=== PATIENT | male | born 1945 | race American Indian/Alaskan Native ===

== ENCOUNTER 2018-11-07 13:01 | Inpatient (IN) | payer MEDICARE ==
[2018-11-07] MEDS ORDERED: ASPIRIN PO ONE (13:13)
[2018-11-07 13:47] LABS: Basophils % (Auto) 0.4 % (0.0-1.8); Eosinophils % (Auto) 0.7 % (0.0-4.3); Hematocrit 44.9 % (35.5-45.6); Hemoglobin 15.1 gm/dl (11.8-15.2); Lymphocytes # (Auto) 1.7 K/mm3 (1.2-5.4); Lymphocytes % (Auto) 34.9 % (13.4-35.0); Mean Corpuscular HGB Conc 34 % (32-34); Mean Corpuscular Volume 97 fl (84-94); Monocytes # (Auto) 0.5 K/mm3 (0.0-0.8); Monocytes % (Auto) 9.6 % (0.0-7.3); Platelet Count 125 K/mm3 (140-440); Red Blood Count 4.65 M/mm3 (3.65-5.03); Red Cell Distribution Width 13.1 % (13.2-15.2)
[2018-11-07 14:23] LABS: Creatine Kinase MB 1.4 ng/mL (0.0-4.0)
[2018-11-07 14:39] LABS: INR 1.57 (0.87-1.13)
[2018-11-07 14:40] LABS: Partial Thromboplastin Time 51.5 Sec. (24.2-36.6)
--- NOTE | 2018-11-07 15:15 | XRay Report ---
CHEST 1 VIEW INDICATION: Chest pain for 4 days. COMPARISON: None FINDINGS: Support devices: None. Heart: Within normal limits. Lungs/Pleura: There are ill-defined airspace opacities in the superior lingula and right lower lobe. These could represent infiltrates. There appears to be a small amount of fluid in the right minor fis sure. The remainder of the lungs are clear. Additional findings: None. IMPRESSION: Bilateral lung opacities concerning for pneumonia. Small right pleural fluid. Consider further evalu ation with CT chest with contrast. Signer Name: David King Jr, MD Signed: 11/07/2018 3:11 PM Workstation Name: [id number]
--- NOTE | 2018-11-07 15:19 | Emergency Department Report ---
ED Chest Pain HPI - General Chief Complaint: Chest Pain Stated Complaint: CHEST PAIN Time Seen by Provider: 11/07/18 13:27 Source: EMS Mode of arrival: Ambulatory Limitations: No Limitations - History of Present Illness Initial Comments: 73-year-old male was seen by his PMD today. Apparently began having intermittent left pectoral nonradiating nonpleuritic chest pain. He described it as sharp and lasting only for seconds. He doesn't report acute shortness of breath nor cough. He's had no fever or chills. He denies nausea, vomiting, sweating or sense of doom. He states he has been admitted to the hospital before in the past some years ago and had a negative stress test. He has some mild persisting left-sided chest pain which does not radiate. MD Complaint: chest pain Onset: during rest Pain Location: left chest Pain Radiation: none Severity: mild, moderate Quality: sharp Consistency: intermittent Improves With: nothing Worsens With: nothing re: denies: nausea, vomting, diaphoresis, dyspnea, sense of impending doom Other Symptoms: denies: cough, fever, syncope Treatments Prior to Arrival: none Aspirin use within the Past 7 Days: (0) No - Related Data On Oral Contraceptives: No Allergies Allergy/AdvReac Type Severity Reaction Status Date / Time No Known Allergies Allergy Verified 11/07/18 13:13 Heart Score - HEART Score History: Slightly suspicious EKG: Non-specific Age: > 65 Risk factors: 1-2 risk factors Troponin: < normal limit HEART Score: 4 - Critical Actions Critical Actions: 4-6 pts:12-16.6% risk of adverse cardiac event. Should be admitted ED Review of Systems ROS: Stated complaint: CHEST PAIN Other details as noted in HPI Constitutional: denies: chills, fever Eyes: denies: eye pain, eye discharge, vision change ENT: denies: ear pain, throat pain Respiratory: denies: cough, shortness of breath, wheezing Cardiovascular: chest pain. denies: palpitations Endocrine: no symptoms reported Gastrointestinal: denies: abdominal pain, nausea, diarrhea Genitourinary: denies: urgency, dysuria Musculoskeletal: denies: back pain, joint swelling, arthralgia Skin: denies: rash, lesions Neurological: denies: headache, weakness, paresthesias Psychiatric: denies: anxiety, depression Hematological/Lymphatic: denies: easy bleeding, easy bruising ED Past Medical Hx - Past Medical History Previous Medical History?: Yes Additional medical history: lung disease, patient describes a pneumoplasty procedure probably for pneumothorax - Surgical History Past Surgical History?: No - Social History Smoking Status: Never Smoker Substance Use Type: None ED Physical Exam - General Limitations: No Limitations General appearance: alert, in no apparent distress - Head Head exam: Present: atraumatic, normocephalic - Eye Eye exam: Present: normal appearance. Absent: scleral icterus - ENT ENT exam: Present: mucous membranes moist - Neck Neck exam: Present: normal inspection - Respiratory Respiratory exam: Present: normal lung sounds bilaterally. Absent: respiratory distress - Cardiovascular Cardiovascular Exam: Present: regular rate, normal rhythm. Absent: systolic murmur, diastolic murmur, rubs, gallop - GI/Abdominal GI/Abdominal exam: Present: soft, normal bowel sounds. Absent: distended, tenderness, guarding, rebound - Rectal Rectal exam: Present: deferred - Extremities Exam Extremities exam: Present: normal inspection. Absent: pedal edema, calf tenderness - Back Exam Back exam: Present: normal inspection - Neurological Exam Neurological exam: Present: alert, oriented X3, CN II-XII intact. Absent: motor sensory deficit - Psychiatric Psychiatric exam: Present: normal affect, normal mood - Skin Skin exam: Present: warm, dry, intact, normal color. Absent: rash ED Course Vital Signs 11/07/18 13:14 Temperature 98.2 F Pulse Rate 81 Respiratory 16 Rate Blood Pressure 180/87 O2 Sat by Pulse 96 Oximetry ED Medical Decision Making - Lab Data Result diagrams: 11/07/18 13:34 Laboratory Results - last 24 hr 11/07/18 11/07/18 11/07/18 13:34 13:56 13:56 WBC 5.0 RBC 4.65 Hgb 15.1 Hct 44.9 MCV 97 H MCH 32 MCHC 34 RDW 13.1 L Plt Count 125 L Lymph % (Auto) 34.9 [place] % (Auto) 9.6 H Eos % (Auto) 0.7 Baso % (Auto) 0.4 Lymph # 1.7 [place] # 0.5 Eos # 0.0 Baso # 0.0 Seg Neutrophils % 54.4 Seg Neutrophils # 2.7 PT 18.4 H INR 1.57 H APTT 51.5 H D-Dimer 190.62 Magnesium 2.30 Total Creatine Kinase 91 CK-MB (CK-2) 1.4 CK-MB (CK-2) Rel Index 1.5 NT-Pro-B Natriuret Pep 199.1 Laboratory Results - last 24 hr 11/07/18 11/07/18 11/07/18 13:34 13:56 13:56 WBC 5.0 RBC 4.65 Hgb 15.1 Hct 44.9 MCV 97 H MCH 32 MCHC 34 RDW 13.1 L Plt Count 125 L Lymph % (Auto) 34.9 [place] % (Auto) 9.6 H Eos % (Auto) 0.7 Baso % (Auto) 0.4 Lymph # 1.7 [place] # 0.5 Eos # 0.0 Baso # 0.0 Seg Neutrophils % 54.4 Seg Neutrophils # 2.7 PT 18.4 H INR 1.57 H APTT 51.5 H D-Dimer 190.62 Magnesium 2.30 Total Creatine Kinase 91 CK-MB (CK-2) 1.4 CK-MB (CK-2) Rel Index 1.5 NT-Pro-B Natriuret Pep 199.1 Lab informed troponin and BMP have not been process. Apparently the tubes were not properly labeled. - EKG Data -: EKG Interpreted by Me EKG shows normal: sinus rhythm - EKG Data Interpretation: other (left bundle-branch block) Critical care attestation.: If time is entered above; I have spent that time in minutes in the direct care of this critically ill patient, excluding procedure time. ED Disposition Clinical Impression: Left bundle branch block Chest pain Qualifiers: Chest pain type: unspecified Qualified Code(s): R07.9 - Chest pain, unspecified Disposition: OP ADMIT IP TO THIS HOSP Is pt being admited?: Yes Does the pt Need Aspirin: Yes Condition: Stable Instructions: Chest Pain (ED) Time of Disposition: 15:35
--- NOTE | 2018-11-07 15:31 | History and Physical Report ---
History of Present Illness Chief complaint: My chest hurts History of present illness: 73 YO Male with Lung Disease NOS presents to ED for evaluation. Pt states that he has experienced multiple episodes of acute onset pain in his chest over the past 8 hours. Pt states that his pain is 4-5/10, intermittent, localized to the left chest, lasts for seconds to minutes, not worsened with exertion, not relieved with rest. Pt acknowledges orthopnea/PND, and decreased exercise tolerance. EMS notified, and upon arrival the patient was found to be in distress and transported to [facility]. Pt seen and evaluated in ED and found to have Angina, as well as symptoms consistent with CHF Decompensation. Pt admitted to telemetry. Cardiology consulted in ED. Pt denies fever, chills, palpitations, NVD, Trauma, productive cough, unintentional weigh loss night sweats, or recent ill contacts. No prior admission for review. No medication listed for reconciliation at time of admission. CT chest with contrast ordered and is pending at time of admission. Past History Past Medical History: other (Lung Disease NOS) Past Surgical History: No surgical history, Other (reviewed) Social history: single. denies: smoking, alcohol abuse, prescription drug abuse Family history: no significant family history, other (reviewed) Medications and Allergies Allergies Allergy/AdvReac Type Severity Reaction Status Date / Time No Known Allergies Allergy Verified 11/07/18 13:13 Review of Systems Constitutional: no weight loss, no fever, no sweats Ears, nose, mouth and throat: no ear pain, no ear discharge, no tinnitis, no nose pain, no nasal discharge Cardiovascular: chest pain, orthopnea, paroxysmal nocturnal dyspnea, decreased exercise tolerance, no edema, no syncope, no lightheadedness, no shortness of breath Respiratory: no cough, no cough with sputum, no excessive sputum, no hemoptysis, no shortness of breath Gastrointestinal: no nausea, no vomiting, no diarrhea, no constipation Genitourinary Male: no hematuria, no flank pain, no discharge, no urinary frequency, no urinary hesitancy Rectal: no pain, no incontinence, no bleeding Musculoskeletal: no neck stiffness, no neck pain, no shooting arm pain, no arm numbness/tingling, no low back pain Integumentary: no rash, no pruritis, no redness, no sores, no wounds Neurological: no paralysis, no weakness, no parathesias, no numbness, no tingling, no seizures Psychiatric: no anxiety, no change in sleep habits, no sleep disturbances, no hypersomnia, no change in appetite, no change in libido Endocrine: no cold intolerance, no heat intolerance, no polyphagia, no excessive thirst, no polydipsia, no nocturia Hematologic/Lymphatic: no easy bruising, no easy bleeding Allergic/Immunologic: no urticaria, no allergic rhinitis, no wheezing Exam - Constitutional Vitals: Temp Pulse Resp BP Pulse Ox 98.2 F 81 16 180/87 96 11/07/18 13:14 11/07/18 13:14 11/07/18 13:14 11/07/18 13:14 11/07/18 13:14 General appearance: Present: mild distress - EENT Eyes: Present: PERRL ENT: hearing intact, clear oral mucosa - Neck Neck: Present: supple, normal ROM - Respiratory Respiratory effort: normal Respiratory: bilateral: CTA - Cardiovascular Heart Sounds: Present: S1 & S2. Absent: rub, click - Extremities Extremities: pulses symmetrical, No edema Peripheral Pulses: within normal limits - Abdominal General gastrointestinal: Present: soft, non-tender, non-distended, normal bowel sounds Male genitourinary: Present: normal - Integumentary Integumentary: Present: clear, warm, dry - Musculoskeletal Musculoskeletal: gait normal, strength equal bilaterally - Psychiatric Psychiatric: appropriate mood/affect, intact judgment & insight - Neurologic Neurologic: CNII-XII intact, moves all extremities Results - Labs CBC & Chem 7: 11/07/18 13:34 11/07/18 13:56 Labs: Abnormal lab results 11/07/18 11/07/18 Range/Units 13:34 13:56 MCV 97 H (84-94) fl RDW 13.1 L (13.2-15.2) % Plt Count 125 L (140-440) K/mm3 [place] % (Auto) 9.6 H (0.0-7.3) % PT 18.4 H (12.2-14.9) Sec. INR 1.57 H (0.87-1.13) APTT 51.5 H (24.2-36.6) Sec. Assessment and Plan - Patient Problems (1) Diastolic CHF Current Visit: Yes Status: Acute Qualifiers: Heart failure chronicity: acute Qualified Code(s): I50.31 - Acute diastolic (congestive) heart failure Plan to address problem: Admit to telemetry, strict I/O, daily weight, blood pressure control, bnp, chest x ray, afterload reduction, cardiology consulted, Echo, (2) RLL pneumonia Current Visit: Yes Status: Acute Qualifiers: Aspiration pneumonia type: unspecified Plan to address problem: Pneumonia protocol: IV antibiotic therapy, cbc, cmp, chest x ray, blood culture, supplemental oxygen, CT chest, (3) Chest pain Current Visit: Yes Status: Acute Qualifiers: Chest pain type: unspecified Qualified Code(s): R07.9 - Chest pain, uns pecified Plan to address problem: serial cardiac enzymes, ekg, telemetry, cardiology consulted in ED, morphine, supplemental oxygen, nitro, aspirin. (4) Left bundle branch block Current Visit: Yes Status: Acute Plan to address problem: Admit to telemetry, supportive care. (5) DVT prophylaxis Current Visit: Yes Status: Acute Plan to address problem: SCD to BLE while in bed. prophylactic lovenox
[2018-11-07 16:11] LABS: BUN/Creatinine Ratio 15; Blood Urea Nitrogen 15 mg/dL (9-20); Calcium 9.1 mg/dL (8.4-10.2); Hemolysis Index 4
--- NOTE | 2018-11-07 18:00 | Cat Scan Report ---
CT chest w con INDICATION / CLINICAL INFORMATION: h/o lung mass. TECHNIQUE: All CT scans at this location are performed using CT dose reduction for ALARA by means of automated e xposure control. COMPARISON: AP chest x-ray 11/07/2018. FINDINGS: There are multiple bilateral pulmonary masses. The largest mass is located in the right lower lobe me asuring 5 cm x 4.2 cm. This mass contains areas of dense calcification. There is adjacent homogeneous opacity with air bronchograms. Smaller masses are identified in the left upper lobe and superior segment of the left lower lobe abbe uring in size up to 4 cm. The larger of these masses also containing calcifications. There are mildly enlarged right hilar lymph nodes. Normal size paratracheal lymph nodes are visualized in the aorticopulmonary region. Limited upper abdominal images demonstrate normal adrenal glands. There are small enhancing lesions noted in the liver that are indeterminate. There is also omental no dularity in the upper abdomen. Skeletal structures of the chest are reviewed with no evidence of lytic or blastic lesion.. IMPRESSION: 1. Multiple pulmonary masses with calcification suggestive of metastatic disease. With the degree of calcification observed in the larger lesions a mucinous producing primary tumor should be considered. 2. Right hilar adenopathy. 3. Indeterminate liver and omental lesions. 4. Airspace opacity in the right lower lobe. Signer Name: Eduardo Gallagher MD Signed: 11/07/2018 5:56 PM Workstation Name: [id number]
[2018-11-07] MEDS ORDERED: SODIUM CHLORIDE FLUSH SYRINGE 10 ML IV PRN (18:37)
[2018-11-07] MEDS ORDERED: TYLENOL PO PRN (18:37)
[2018-11-07] MEDS ORDERED: MORPHINE IV PRN (18:37)
[2018-11-07] MEDS ORDERED: ZOFRAN IV PRN (18:37)
[2018-11-07] MEDS ORDERED: PERCOCET 5/325 PO PRN (18:37)
[2018-11-07] MEDS ORDERED: PROVENTIL IH PRN (18:37)
[2018-11-07] MEDS ORDERED: NITROSTAT SL PRN (18:39)
[2018-11-07] MEDS: LOVENOX SUB-Q SCH (21:49)
[2018-11-07] MEDS: SODIUM CHLORIDE FLUSH SYRINGE 10 ML IV SCH (21:49)
[2018-11-08 04:37] LABS: BUN/Creatinine Ratio 16; Blood Urea Nitrogen 13 mg/dL (9-20); Calcium 8.7 mg/dL (8.4-10.2); Hemolysis Index 9
[2018-11-08] MEDS ORDERED: ZITHROMAX 500 MG in NACL 0.9% 250ML 250 ML IV SCH (10:00)
[2018-11-08] MEDS: SODIUM CHLORIDE FLUSH SYRINGE 10 ML IV SCH ×2 (10:03→22:10)
--- NOTE | 2018-11-08 10:32 | Consultation ---
History of Present Illness Consult date: 11/08/18 Consult reason: chest pain History of present illness: 73 YO man who presented to [facility] with worsening shortness of breath and bilateral chest pain. He describes pain as sharp sensation in left chest. He has also noticed increasing shortness of breath. [place] has been ruled out. CT chest revealed multiple pulmonary masses suggestive of metastatic disease. ECG reveals SR with LBBB Past History Past Medical History: other (Lung Disease NOS) Past Surgical History: No surgical history, Other (reviewed) Social history: single. denies: smoking, alcohol abuse, prescription drug abuse Family history: no significant family history, other (reviewed) Medications and Allergies Allergies Allergy/AdvReac Type Severity Reaction Status Date / Time No Known Allergies Allergy Verified 11/07/18 13:13 Active Meds: Active Medications Acetaminophen (Tylenol) 650 mg PO Q4H PRN PRN Reason: Pain MILD(1-3)/Fever >100.5/MOISE Albuterol (Proventil) 2.5 mg IH Q4HRT PRN PRN Reason: Shortness Of Breath Enoxaparin Sodium (Lovenox) 40 mg SUB-Q QDAY@2200 [facility] Last Admin: 11/07/18 21:49 Dose: 40 mg Documented by: Ceftriaxone Sodium (Rocephin/Ns 2 Gm/100 Ml) 2 gm in 100 mls @ 200 mls/hr IV Q24HR JOHN; Protocol Azithromycin 500 mg/ Sodium (Chloride) 250 mls @ 250 mls/hr IV Q24HR JOHN; Protocol Morphine Sulfate (Morphine) 2 mg IV Q4H PRN PRN Reason: Pain, Moderate (4-6) Nitroglycerin (Nitrostat) 0.4 mg SL .Q5MIN PRN PRN Reason: Chest Pain Ondansetron HCl (Zofran) 4 mg IV Q8H PRN PRN Reason: Nausea And Vomiting Oxycodone/Acetaminophen (Percocet 5/325) 1 tab PO Q6H PRN PRN Reason: Pain, Moderate (4-6) Sodium Chloride (Sodium Chloride Flush Syringe 10 Ml) 10 ml IV BID [facility] Last Admin: 11/07/18 21:49 Dose: 10 ml Documented by: Sodium Chloride (Sodium Chloride Flush Syringe 10 Ml) 10 ml IV PRN PRN PRN Reason: LINE FLUSH Review of Systems All systems: negative Physical Examination Vital Signs Temp Pulse Resp BP Pulse Ox 98.2 F 81 16 180/87 96 11/07/18 13:14 11/07/18 13:14 11/07/18 13:14 11/07/18 13:14 11/07/18 13:14 HEENT: Positive: PERRL, EOMI Neck: Positive: neck supple Cardiac: Positive: Reg Rate and Rhythm Lungs: Positive: Decreased Breath Sounds, Rhonchi Abdomen: Positive: Soft, Active Bowel Sounds Extremities: Absent: edema Results 11/07/18 13:34 11/08/18 03:54 Cardiac Enzymes 11/07/18 Range/Units 13:56 CK-MB (CK-2) 1.4 (0.0-4.0) ng/mL Coagulation 11/07/18 Range/Units 13:56 PT 18.4 H (12.2-14.9) Sec. INR 1.57 H (0.87-1.13) APTT 51.5 H (24.2-36.6) Sec. CBC 11/07/18 Range/Units 13:34 WBC 5.0 (4.5-11.0) K/mm3 RBC 4.65 (3.65-5.03) M/mm3 Hgb 15.1 (11.8-15.2) gm/dl Hct 44.9 (35.5-45.6) % Plt Count 125 L (140-440) K/mm3 Lymph # 1.7 (1.2-5.4) K/mm3 [place] # 0.5 (0.0-0.8) K/mm3 Eos # 0.0 (0.0-0.4) K/mm3 Baso # 0.0 (0.0-0.1) K/mm3 Comprehensive Metabolic Panel 11/07/18 11/08/18 Range/Units 13:56 03:54 Sodium 141 139 (137-145) mmol/L Potassium 4.0 3.4 L (3.6-5.0) mmol/L Chloride 101.3 104.2 (98-107) mmol/L Carbon Dioxide 31 H 28 (22-30) mmol/L BUN 15 13 (9-20) mg/dL Creatinine 1.0 0.8 (0.8-1.5) mg/dL Glucose 81 90 (75-100) mg/dL Calcium 9.1 8.7 (8.4-10.2) mg/dL Assessment and Plan Atypical chest pain likely related to lung masses Multiple lung masses suggestive of metastatic disease. LBBB Recommned: Pulmonary and oncology evaluation Check Echocardiogram
--- NOTE | 2018-11-08 11:29 | Progress Note ---
Assessment and Plan - b/l multiple Lung nodules Reported could be metastatic lesions. Also reported right hilar adenopathy. Also reported indeterminate liver and Omental lesions. Pulmonary consult - had biopsy on 2010 and [place] showed normal results will get medical records from [place] Patient refuses any possibility for repeat biopsy - RLL pneumonia Pneumonia protocol: IV antibiotic therapy, blood culture, supplemental oxygen, sputum culture - Atypical Chest pain due to possible lung mass, 2d echo pending Cardiology following - DVT prophylaxis SCD to BLE while in bed. prophylactic lovenox CT OF CHEST WITH CONTRAST: 1. Multiple pulmonary masses with calcification suggestive of metastatic disease. With the degree of calcification observed in the larger lesions a mucinous producing primary tumor should be considered. 2. Right hilar adenopathy. 3. Indeterminate liver and omental lesions. 4. Airspace opacity in the right lower lobe. Hospitalist physical: GENERAL: well-developed and well-nourished -[place] male lying on bed appeared to be in no discomfort. HEENT: Normocephalic. Atraumatic. No conjunctival congestion or icterus. Patient has moist mucous membranes. NECK: Supple. Trachea midline. CHEST/LUNGS: Clear to auscultated bilaterally, breathing nonlabored. No wheezes crackles or rhonchi. HEART/CARDIOVASCULAR: Regular in rate and rhythm. S1 and S2 positive. ABDOMEN: Abdomen is soft, nontender. Patient has normal bowel sounds. SKIN: There is no rash. Warm and dry. NEURO: No focal motor deficit. Follows command. MUSCULOSKELETAL: No joint effusion or tenderness. EXTRIMITY: No edema, no cyanosis or clubbing. PSYCH: Cooperative. Subjective Date of service: 11/08/18 Interval history: Patient seen and examined. Medical records and medication list reviewed. No acute event overnight noted by the RN. Patient denies any difficulty breathing. Patient is tolerating diet. Continue to complains of left-sided pleuritic chest pain He refuses any possibility for lung biopsy in this current admission Discussed plan of care at bedside with patient. Objective - Constitutional Vitals: Vital Signs - 12hr 11/07/18 11/08/18 11/08/18 23:30 04:18 08:58 Temperature 97.9 F 98.0 F 98.2 F Pulse Rate 69 62 76 Respiratory 19 18 18 Rate Blood Pressure 125/53 141/68 169/83 O2 Sat by Pulse 97 97 95 Oximetry - Labs CBC & Chem 7: 11/07/18 13:34 11/09/18 11:18 Labs: Abnormal lab results 11/07/18 11/07/18 11/07/18 Range/Units 13:34 13:56 13:56 MCV 97 H (84-94) fl RDW 13.1 L (13.2-15.2) % Plt Count 125 L (140-440) K/mm3 [place] % (Auto) 9.6 H (0.0-7.3) % PT 18.4 H (12.2-14.9) Sec. INR 1.57 H (0.87-1.13) APTT 51.5 H (24.2-36.6) Sec. Potassium (3.6-5.0) mmol/L Carbon Dioxide 31 H (22-30) mmol/L 11/08/18 Range/Units 03:54 MCV (84-94) fl RDW (13.2-15.2) % Plt Count (140-440) K/mm3 [place] % (Auto) (0.0-7.3) % PT (12.2-14.9) Sec. INR (0.87-1.13) APTT (24.2-36.6) Sec. Potassium 3.4 L (3.6-5.0) mmol/L Carbon Dioxide (22-30) mmol/L
[2018-11-08] MEDS: ROCEPHIN/NS 2 GM/100 ML 2 GM/100 ML BAG IV SCH (13:00)
[2018-11-08] MEDS ORDERED: K-DUR PO ONE (14:49)
--- NOTE | 2018-11-08 18:06 | Consultation ---
History of Present Illness Consult date: 11/08/18 Reason for consult: dyspnea, chest pain History of present illness: PULMONARY AND CRI TICAL CARE CONSULTATION. DR. BRIDGES THANK YOU FOR ASKING US TO PARTICIPATE IN THE CARE OF THIS PATIENT. 73 YO Male with Lung Disease NOS presents to ED for evaluation. Pt states that he has experienced multiple episodes of acute onset pain in his chest over the past 8 hours. Pt states that his pain is 4-5/10, intermittent, localized to the left chest, lasts for seconds to minutes, not worsened with exertion, not relieved with rest. Pt acknowledges orthopnea/PND, and decreased exercise tolerance. EMS notified, and upon arrival the patient was found to be in distress and transported to [facility]. Pt seen and evaluated in ED and found to have Angina, as well as symptoms consistent with CHF Decompensation. Pt admitted to telemetry. Cardiology consulted in ED. Pt denies fever, chills, palpitations, NVD, Trauma, productive cough, unintentional weigh loss night sweats, or recent ill contacts. CT chest with contrast reported bilateral Lung masses. Patient has work up at [facility] in 2010. According to the patient they were benign. Recommend to get the results from [facility]. Patient said he has Pneumothorax post percutaneous needle biopsy chest leison at [facility]. H oes not want any kind of biopsies under any circumastance. Patient denies any history of smoking, alcohol or drug abuse. Patient migrated from [place]. Patient says allergic to choroquine. Patient denies history of malaria. 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 Past History Past Medical History: other (Lung Disease NOS) Past Surgical History: No surgical history, Other (reviewed) Social history: single. denies: smoking, alcohol abuse, prescription drug abuse Family history: no significant family history, other (reviewed) Medications and Allergies Allergies Allergy/AdvReac Type Severity Reaction Status Date / Time No Known Allergies Allergy Verified 11/09/18 09:20 Active Meds: Active Medications Acetaminophen (Tylenol) 650 mg PO Q4H PRN PRN Reason: Pain MILD(1-3)/Fever >100.5/MOISE Albuterol (Proventil) 2.5 mg IH Q4HRT PRN PRN Reason: Shortness Of Breath Azithromycin (Zithromax) 500 mg PO QDAY JOHN Enoxaparin Sodium (Lovenox) 40 mg SUB-Q QDAY@2200 [facility] Last Admin: 11/07/18 21:49 Dose: 40 mg Documented by: Ceftriaxone Sodium (Rocephin/Ns 2 Gm/100 Ml) 2 gm in 100 mls @ 200 mls/hr IV Q24HR [facility]; Protocol Last Admin: 11/08/18 13:00 Dose: 200 mls/hr Documented by: Morphine Sulfate (Morphine) 2 mg IV Q4H PRN PRN Reason: Pain, Moderate (4-6) Nitroglycerin (Nitrostat) 0.4 mg SL .Q5MIN PRN PRN Reason: Chest Pain Ondansetron HCl (Zofran) 4 mg IV Q8H PRN PRN Reason: Nausea And Vomiting Oxycodone/Acetaminophen (Percocet 5/325) 1 tab PO Q6H PRN PRN Reason: Pain, Moderate (4-6) Sodium Chloride (Sodium Chloride Flush Syringe 10 Ml) 10 ml IV BID [facility] Last Admin: 11/08/18 10:03 Dose: 10 ml Documented by: Sodium Chloride (Sodium Chloride Flush Syringe 10 Ml) 10 ml IV PRN PRN PRN Reason: LINE FLUSH Review of Systems All systems: negative Physical Examination Vital signs: Vital Signs Temp Pulse Resp BP Pulse Ox 98.2 F 81 16 180/87 96 11/07/18 13:14 11/07/18 13:14 11/07/18 13:14 11/07/18 13:14 11/07/18 13:14 General appearance: no acute distress, alert Eyes: non-icteric ENT: oropharynx moist Neck: supple, no JVD Ascultation: Bilateral: rhonchi Cardiovascular: regular rate and rhythm Gastrointestinal: normoactive bowel sounds, soft, non-tender Integumentary: normal Extremities: no cyanosis, no edema Musculoskeletal: no deformities Gait: normal posture normal mental status, non-focal exam, pupils equal and round, CN II-XII normal anxious Results - Laboratory Findings CBC and BMP: 11/07/18 13:34 11/08/18 03:54 PT/INR, D-dimer PT 18.4 Sec. (12.2-14.9) H 11/07/18 13:56 INR 1.57 (0.87-1.13) H 11/07/18 13:56 190.62 ng/mlDDU (0-234) 11/07/18 13:56 Abnormal lab findings: Abnormal Labs 11/07/18 11/07/18 11/07/18 13:34 13:56 13:56 MCV 97 H RDW 13.1 L Plt Count 125 L [place] % (Auto) 9.6 H PT 18.4 H INR 1.57 H APTT 51.5 H Potassium Carbon Dioxide 31 H 11/08/18 03:54 MCV RDW Plt Count [place] % (Auto) PT INR APTT Potassium 3.4 L Carbon Dioxide - Diagnostic Findings Chest x-ray: report reviewed (REPORTED BILATERAL LUNG OPACITIES.), image reviewed CT scan - chest: report reviewed, image reviewed Additional studies: CT OF CHEST WITH CONTRAST: IMPRESSION: 1. Multiple pulmonary masses with calcification suggestive of metastatic disease. With the degree of calcification observed in the larger lesions a mucinous producing primary tumor should be considered. 2. Right hilar adenopathy. 3. Indeterminate liver and omental lesions. 4. Airspace opacity in the right lower lobe. Assessment and Plan 73 YO Male with Lung Disease NOS presents to ED for evaluation. Pt states that steven louie has experienced multiple episodes of acute onset pain in his chest over the past 8 hours. Pt states that his pain is 4-5/10, intermittent, localized to the left chest, lasts for seconds to minutes, not worsened with exertion, not relieved with rest. Pt acknowledges orthopnea/PND, and decreased exercise tolerance. EMS notified, and upon arrival the patient was found to be in distress and transported to [facility]. Pt seen and evaluated in ED and found to have Angina, as well as symptoms consistent with CHF Decompensation. Pt admitted to telemetry. Cardiology consulted in ED. Pt denies fever, chills, palpitations, NVD, Trauma, productive cough, unintentional weigh loss night sweats, or recent ill contacts. CT chest with contrast reported bilateral Lung masses. Patient has work up at [facility] in 2010. According to the patient they were benign. Recommend to get the results from [facility]. Patient said he has Pneumothorax post percutaneous needle biopsy chest leison at [facility]. H abdon not want any kind of biopsies under any circumastance. Patient denies any history of smoking, alcohol or drug abuse. Patient migrated from [place]. Patient says allergic to choroquine. Patient denies history of malaria. 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 Talk to Dr. More directly and discussed his pulmonary problems and plan. - Patient Problems (1) Mass of lung parenchyma Current Visit: Yes Status: Acute Plan to address problem: Bilateral lung masses. Reported could be metastatic lesions. Also reported right hilar adenopathy. Also reported indeterminate liver and Omental lesions. Patient does not want any biopsies of chest lesion under any circumastances. (2) Chest pain Current Visit: Yes Status: Acute Qualifiers: Chest pain type: unspecified Qualified Code(s): R07.9 - Chest pain, unspecified Plan to address problem: Complained sharp pleuritic type of chest pain. Says chest pain getting better. (3) Diastolic CHF Current Visit: Yes Status: Acute Qualifiers: Heart failure chronicity: acute Qualified Code(s): I50.31 - Acute diastolic (congestive) heart failure Plan to address problem: Management as per cardiology. (4) Pneumonia Current Visit: Yes Status: Acute Plan to address problem: Continue ceftrioxone and zithromax.
[2018-11-08] MEDS: LOVENOX SUB-Q SCH (22:09)
[2018-11-09] MEDS: ROCEPHIN/NS 2 GM/100 ML 2 GM/100 ML BAG IV SCH (10:29)
[2018-11-09] MEDS: SODIUM CHLORIDE FLUSH SYRINGE 10 ML IV SCH ×2 (10:29→21:11)
--- NOTE | 2018-11-09 13:24 | Progress Note ---
Assessment and Plan - b/l multiple Lung nodules Reported could be metastatic lesions. Also reported right hilar adenopathy. Also reported indeterminate liver and Omental lesions. Pulmonary consult - had biopsy on 2010 and [facility] showed normal results Patient refuses any possibility for repeat biopsy wait for medical records from [facility] - RLL pneumonia Pneumonia protocol: IV antibiotic therapy, blood culture, supplemental oxygen, sputum culture - Atypical Chest pain due to possible lung mass, 2d echo pending Cardiology following - Hypokalemia, repleted - DVT prophylaxis SCD to BLE while in bed. prophylactic lovenox CT OF CHEST WITH CONTRAST: 1. Multiple pulmonary masses with calcification suggestive of metastatic disease. With the degree of calcification observed in the larger lesions a mucinous producing primary tumor should be considered. 2. Right hilar adenopathy. 3. Indeterminate liver and omental lesions. 4. Airspace opacity in the right lower lobe. Hospitalist physical: GENERAL: well-developed and well-nourished -[place]ue[place] male lying on bed appeared to be in no discomfort. HEENT: Normocephalic. Atraumatic. No conjunctival congestion or icterus. Patient has moist mucous membranes. NECK: Supple. Trachea midline. CHEST/LUNGS: Clear to auscultated bilaterally, breathing nonlabored. No wheezes crackles or rhonchi. HEART/CARDIOVASCULAR: Regular in rate and rhythm. S1 and S2 positive. ABDOMEN: Abdomen is soft, nontender. Patient has normal bowel sounds. SKIN: There is no rash. Warm and dry. NEURO: No focal motor deficit. Follows command. MUSCULOSKELETAL: No joint effusion or tenderness. EXTRIMITY: No edema, no cyanosis or clubbing. PSYCH: Cooperative. Subjective Date of service: 11/09/18 Interval history: Patient seen and examined. Medical records and medication list reviewed. No acute event overnight noted by the RN. Patient denies any difficulty breathing. Patient is tolerating diet. Continue to complains of left-sided pleuritic chest pain He refuses any possibility for lung biopsy in this current admission Discussed plan of care at bedside with patient. Objective - Constitutional Vitals: Vital Signs - 12hr 11/09/18 11/09/18 03:30 07:30 Temperature 98.5 F 98.0 F Pulse Rate 67 62 Respiratory 20 18 Rate Blood Pressure 141/63 143/68 O2 Sat by Pulse 97 98 Oximetry - Labs CBC & Chem 7: 11/07/18 13:34 11/10/18 04:14
--- NOTE | 2018-11-09 13:52 | Progress Note ---
Assessment and Plan Atypical chest pain likely related to lung masses Multiple lung masses suggestive of metastatic disease. Pt reports prior lung biopsy at [facility]. LBBB Recommned: Pulmonary evaluation ongoing. Check Echocardiogram Subjective Date of service: 11/09/18 Interval history: No cardiac complaints Objective Vital Signs Temp Pulse Resp BP Pulse Ox 11/09/18 07:30 98.0 F 62 18 143/68 98 11/09/18 03:30 98.5 F 67 20 141/63 97 11/08/18 23:06 98.0 F 62 20 140/70 97 11/08/18 20:08 62 11/08/18 20:07 62 96 11/08/18 19:43 98.3 F 20 146/77 11/08/18 18:11 96 11/08/18 16:17 98.0 F 73 20 156/81 100 11/08/18 14:00 74 - Physical Examination HEENT: Positive: PERRL, EOMI Neck: Positive: neck supple Cardiac: Positive: Reg Rate and Rhythm Lungs: Positive: clear to auscultation Abdomen: Positive: Soft, Active Bowel Sounds Extremities: Absent: edema - Labs and Meds Comprehensive Metabolic Panel 11/09/18 Range/Units 11:18 Potassium 4.3 D (3.6-5.0) mmol/L
--- NOTE | 2018-11-09 15:21 | Progress Note ---
Assessment and Plan 73 YO Male with Lung Disease NOS presents to ED for evaluation. Pt states that he has experienced multiple episodes of acute onset pain in his chest over the past 8 hours. Pt states that his pain is 4-5/10, intermittent, localized to the left chest, lasts for seconds to minutes, not worsened with exertion, not relieved with rest. Pt acknowledges orthopnea/PND, and decreased exercise tolerance. EMS notified, and upon arrival the patient was found to be in distress and transported to [facility]. Pt seen and evaluated in ED and found to have A ngina, as well as symptoms consistent with CHF Decompensation. Pt admitted to telemetry. Cardiology consulted in ED. Pt denies fever, chills, palpitations, NVD, Trauma, productive cough, unintentional weigh loss night sweats, or recent ill contacts. CT chest with contrast reported bilateral Lung masses. Patient has work up at [facility] in 2010. According to the patient they were benign. Recommend to get the results from [facility]. Patient said he has Pneumothorax post percutaneous needle biopsy chest leison at [facility]. H oes not want any kind of biopsies under any circumastance. Patient denies any history of smoking, alcohol or drug abuse. Patient migrated from [facility]. Patient says allergic to choroquine. Patient denies history of malaria. 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 Talk to Dr. More directly and discussed his pulmonary problems and plan. 11/09/18 Patient alert, awake and resting on room air.O2 saturation 98%. Says pleuritic chest pain is getting better. Still waiting for records from [place]. - Patient Problems (1) Mass of lung parenchyma Current Visit: Yes Status: Acute Plan to address problem: Bilateral lung masses. Reported could be metastatic lesions. Also reported right hilar adenopathy. Also reported indeterminate liver and Omental lesions. Patient does not want any biopsies of chest lesion under any circumastances. (2) Chest pain Current Visit: Yes Status: Acute Qualifiers: Chest pain type: unspecified Qualified Code(s): R07.9 - Chest pain, unspecified Plan to address problem: Complained sharp pleuritic type of chest pain. Says chest pain getting better. (3) Diastolic CHF Current Visit: Yes Status: Acute Qualifiers: Heart failure chronicity: acute Qualified Code(s): I50.31 - Acute diastolic (congestive) heart failure Plan to address problem: Management as per cardiology. (4) Pneumonia Current Visit: Yes Status: Acute Plan to address problem: Continue ceftrioxone and zithromax. Subjective Date of service: 11/09/18 Interval history: Patient alert, awake and resting on room air.O2 saturation 98%. Says pleuritic chest pain is getting better. Still waiting for records from [place]. Objective Vital Signs - 12hr 11/09/18 11/09/18 03:30 07:30 Temperature 98.5 F 98.0 F Pulse Rate 67 62 Respiratory 20 18 Rate Blood Pressure 141/63 143/68 O2 Sat by Pulse 97 98 Oximetry Constitutional: no acute distress, alert Eyes: non-icteric ENT: oropharynx moist Neck: supple, no JVD Ascultation: Bilateral: rhonchi Cardiovascular: regular rate and rhythm Gastrointestinal: normoactive bowel sounds, soft, non-tender Integumentary: normal Extremities: no cyanosis, no edema Neurologic: normal mental status, non-focal exam, pupils equal and round, CN II- XII normal Psychiatric: anxious CBC and BMP: 11/07/18 13:34 11/09/18 11:18 ABG, PT/INR, D-dimer: PT/INR, D-dimer PT 18.4 Sec. (12.2-14.9) H 11/07/18 13:56 INR 1.57 (0.87-1.13) H 11/07/18 13:56 190.62 ng/mlDDU (0-234) 11/07/18 13:56 Abnormal lab findings: Abnormal Labs 11/07/18 11/07/18 11/07/18 13:34 13:56 13:56 MCV 97 H RDW 13.1 L Plt Count 125 L [place] % (Auto) 9.6 H PT 18.4 H INR 1.57 H APTT 51.5 H Potassium Carbon Dioxide 31 H 11/08/18 03:54 MCV RDW Plt Count [place] % (Auto) PT INR APTT Potassium 3.4 L Carbon Dioxide
[2018-11-09] MEDS: ZITHROMAX PO SCH (21:10)
[2018-11-09] MEDS: LOVENOX SUB-Q SCH (21:11)
[2018-11-10 06:18] LABS: BUN/Creatinine Ratio 19; Blood Urea Nitrogen 15 mg/dL (9-20); Calcium 8.7 mg/dL (8.4-10.2); Hemolysis Index 4
[2018-11-10] MEDS: ROCEPHIN/NS 2 GM/100 ML 2 GM/100 ML BAG IV SCH (10:15)
[2018-11-10] MEDS: ZITHROMAX PO SCH (10:15)
[2018-11-10] MEDS: SODIUM CHLORIDE FLUSH SYRINGE 10 ML IV SCH ×2 (10:17→22:02)
--- NOTE | 2018-11-10 10:57 | Progress Note ---
Assessment and Plan Atypical chest pain likely related to lung masses Hx of Left lung mass prior lung biopsy at [facility] in 2013. LBBB An echocardiogram revealed a decreased left ventricular systolic function, EF 30-35%. The chronicity of his cardiomyopathy is uncertain. Subjective Date of service: 11/10/18 Interval history: Patient is resting in bed comfortably. He denies chest pain and shortness of breath. Objective Vital Signs Temp Pulse Resp BP Pulse Ox 11/10/18 08:22 97.6 F 70 18 162/78 97 11/10/18 04:09 97.9 F 72 20 144/75 97 11/10/18 02:47 64 11/09/18 23:32 98.2 F 76 19 144/65 97 11/09/18 19:40 97.2 F L 71 19 146/78 96 11/09/18 19:22 64 11/09/18 17:04 97.3 F L 74 20 152/76 100 11/09/18 12:45 98.2 F 71 18 129/60 97 - Physical Examination General: No Apparent Distress HEENT: Positive: PERRL Neck: Positive: neck supple Cardiac: Positive: Reg Rate and Rhythm Lungs: Positive: Normal Breath Sounds Neuro: Positive: Grossly Intact Abdomen: Positive: Soft Extremities: Absent: edema - Labs and Meds Comprehensive Metabolic Panel 11/09/18 11/10/18 Range/Units 11:18 04:14 Sodium 140 (137-145) mmol/L Potassium 4.3 D 3.9 (3.6-5.0) mmol/L Chloride 104.1 (98-107) mmol/L Carbon Dioxide 26 (22-30) mmol/L BUN 15 (9-20) mg/dL Creatinine 0.8 (0.8-1.5) mg/dL Glucose 89 (75-100) mg/dL Calcium 8.7 (8.4-10.2) mg/dL
--- NOTE | 2018-11-10 14:22 | Progress Note ---
Assessment and Plan - b/l multiple Lung nodules Reported could be metastatic lesions. Also reported right hilar adenopathy. Also reported indeterminate liver and Omental lesions. Pulmonary consult - had biopsy on 2012 at [place] showed benign glaucomatous disea se Patient refuses any possibility for repeat biopsy patient will do outpt followup with pulmonary - RLL pneumonia Pneumonia protocol: IV antibiotic therapy, blood culture, supplemental oxygen, sputum culture - Acute CHFeEF 30-35% Plan for stress test tomorrow cardiology following, started on asp, statin, BB, ACEI and diuretis - Atypical Chest pain stress test tomorrow, 2d echo showed reduced EF of 30-35% Cardiology following - Hypokalemia, repleted - DVT prophylaxis SCD to BLE while in bed. prophylactic lovenox CT OF CHEST WITH CONTRAST: 1. Multiple pulmonary masses with calcification suggestive of metastatic disease. With the degree of calcification observed in the larger lesions a mucinous producing primary tumor should be considered. 2. Right hilar adenopathy. 3. Indeterminate liver and omental lesions. 4. Airspace opacity in the right lower lobe. Brief History: 73 YO Male with Lung Disease NOS presented to ED for evaluation of multiple episodes of acute onset pain in his chest. Pt acknowledges orthopnea/PND, and decreased exercise tolerance. EMS notified, and transported to [facility]. Pt seen and evaluated in ED and found to have Angina, as well as symptoms consistent with CHF Decompensation. Pt admitted to telemetry. Cardiology consulted in ED. CT chest with contrast ordered and showed RLL pNA and b/l lung nodules. 2d echo showed reduced EF, stress test tomorrow. Hospitalist physical: GENERAL: well-developed and well-nourished -[place] male lying on bed appeared to be in no discomfort. HEENT: Normocephalic. Atraumatic. No conjunctival congestion or icterus. Patient has moist mucous membranes. NECK: Supple. Trachea midline. CHEST/LUNGS: Clear to auscultated bilaterally, breathing nonlabored. No wheezes crackles or rhonchi. HEART/CARDIOVASCULAR: Regular in rate and rhythm. S1 and S2 positive. ABDOMEN: Abdomen is soft, nontender. Patient has normal bowel sounds. SKIN: There is no rash. Warm and dry. NEURO: No focal motor deficit. Follows command. MUSCULOSKELETAL: No joint effusion or tenderness. EXTRIMITY: No edema, no cyanosis or clubbing. PSYCH: Cooperative. Subjective Date of service: 11/10/18 Interval history: Patient seen and examined. Medical records and medication list reviewed. No acute event overnight noted by the RN. Patient denies any difficulty breathing. Patient is tolerating diet. Continue to complains of left-sided pleuritic chest pain noted trent report - on the chart 2d echo showed reduced EF Discussed plan of care at bedside with patient. Objective - Constitutional Vitals: Vital Signs - 12hr 11/10/18 11/10/18 11/10/18 02:47 04:09 08:22 Temperature 97.9 F 97.6 F Pulse Rate 64 72 70 Respiratory 20 18 Rate Blood Pressure 144/75 162/78 O2 Sat by Pulse 97 97 Oximetry 11/10/18 11/10/18 10:00 11:00 Temperature Pulse Rate 67 Respiratory Rate Blood Pressure O2 Sat by Pulse 95 Oximetry - Labs CBC & Chem 7: 11/07/18 13:34 11/10/18 04:14
[2018-11-10] MEDS: ALDACTONE PO SCH (15:24)
[2018-11-10] MEDS: COREG PO SCH ×2 (15:25→21:58)
[2018-11-10] MEDS: HALFPRIN EC PO SCH (15:26)
[2018-11-10] MEDS: ZESTRIL PO SCH (15:26)
--- NOTE | 2018-11-10 17:16 | Progress Note ---
Assessment and Plan Patient alert, awake and resting on room air.O2 saturation 96%. Says left sided pleuritic chest pain is better. Records obtained from [place],fine needle apiration of left lower lobe lesion done on 12/10/12 reported firous, tissue benign bronchial epithelium and granulomatous inflammation.Patients CAT scan at [place] on 11/03/2012 shows right lower lobe mass adjacent to the major fissure with central calcification is unchanged from the MRI from 02/22/2011. However, in light of the enlarging left lower lobe nodule and the presence of other pulmonary nodules, malignancy should be considered including metastatis from cartilaginous bony lesions (including enchondromas, which have low malignant potential) or primary or metastatic carcinoid tumors. Suggest biopsy of left lower lobe lesion given that this lesion has increased in size since 2010. Patient undergone percutaneous needle biopsy of left lung lesion at [facility] in 2012. Patient suffered left sided pneumothorax post biopsy. Patient had a left sided chest tube placed and expansion of the left lung. Patient has a CT of the chest here at [facility] on 11/07/18. reported: IMPRESSION: 1. Multiple pulmonary masses with calcification suggestive of metastatic disease. With the degree of calcification observed in the larger lesions a mucinous producing primary tumor should be considered. 2. Right hilar adenopathy. 3. Indeterminate liver and omental lesions. 4. Airspace opacity in the right lower lobe. Suggested to the patient to have a percutaneous needle biopsy of the lesion. Patient does not want any kind of biopsy at this time. - Patient Problems (1) Mass of lung parenchyma Current Visit: Yes Status: Acute Plan to address problem: Bilateral lung masses. Reported could be metastatic lesions. Also reported right hilar adenopathy. Also reported indeterminate liver and Omental lesions. Patient does not want any biopsies of chest lesion under any circumastances. (2) Chest pain Current Visit: Yes Status: Acute Qualifiers: Chest pain type: unspecified Qualified Code(s): R07.9 - Chest pain, unsp ecified Plan to address problem: Complained sharp pleuritic type of chest pain. Says chest pain getting better. (3) Diastolic CHF Current Visit: Yes Status: Acute Qualifiers: Heart failure chronicity: acute Qualified Code(s): I50.31 - Acute diastolic (congestive) heart failure Plan to address problem: Management as per cardiology. (4) Pneumonia Current Visit: Yes Status: Acute Plan to address problem: Continue ceftrioxone and zithromax. Subjective Date of service: 11/10/18 Interval history: Patient alert, awake and resting on room air.O2 saturation 96%. Says left sided pleuritic chest pain is better. Records obtained from [place],fine needle a piration of left lower lobe lesion done on 12/10/12 reported firous, tissue benign bronchial epithelium and granulomatous inflammation.Patients CAT scan at [place] on 11/03/2012 shows right lower lobe mass adjacent to the major fissure with central calcification is unchanged from the MRI from 02/22/2011. However, in light of the enlarging left lower lobe nodule and the presence of other pulmonary nodules, malignancy should be considered including metastatis from cartilaginous bony lesions (including enchondromas, which have low malignant potential) or primary or metastatic carcinoid tumors. Suggest biopsy of left lower lobe lesion given that this lesion has increased in size since 2010. Patient undergone percutaneous needle biopsy of left lung lesion at [facility] in 2012. Patient suffered left sided pneumothorax post biopsy. Patient had a left sided chest tube placed and expansion of the left lung. Patient has a CT of the chest here at [facility] on 11/07/18. reported: IMPRESSION: 1. Multiple pulmonary masses with calcification suggestive of metastatic disease. With the degree of calcification observed in the larger lesions a mucinous producing primary tumor should be considered. 2. Right hilar adenopathy. 3. Indeterminate liver and omental lesions. 4. Airspace opacity in the right lower lobe. Suggested to the patient to have a percutaneous needle biopsy of the lesion. Patient does not want any kind of biopsy at this time. Objective Vital Signs - 12hr 11/10/18 11/10/18 11/10/18 08:22 10:00 11:00 Temperature 97.6 F Pulse Rate 70 67 Respiratory 18 Rate Blood Pressure 162/78 O2 Sat by Pulse 97 95 Oximetry 11/10/18 11/10/18 11/10/18 15:19 15:24 15:25 Temperature Pulse Rate 72 72 72 Respiratory Rate Blood Pressure 141/65 141/65 141/65 O2 Sat by Pulse 96 Oximetry 11/10/18 11/10/18 15:26 16:55 Temperature Pulse Rate 72 75 Respiratory Rate Blood Pressure 141/65 169/76 O2 Sat by Pulse 96 Oximetry Constitutional: no acute distress, alert Eyes: non-icteric ENT: oropharynx moist Neck: supple, no JVD Ascultation: Bilateral: rhonchi Cardiovascular: regular rate and rhythm Gastrointestinal: normoactive bowel sounds, soft, non-tender Integumentary: normal Extremities: no cyanosis, no edema Neurologic: normal mental status, non-focal exam, pupils equal and round, CN II- XII normal Psychiatric: anxious CBC and BMP: 11/07/18 13:34 11/10/18 04:14 ABG, PT/INR, D-dimer: PT/INR, D-dimer PT 18.4 Sec. (12.2-14.9) H 11/07/18 13:56 INR 1.57 (0.87-1.13) H 11/07/18 13:56 190.62 ng/mlDDU (0-234) 11/07/18 13:56 Abnormal lab findings: Abnormal Labs 11/07/18 11/07/18 11/07/18 13:34 13:56 13:56 MCV 97 H RDW 13.1 L Plt Count 125 L [place] % (Auto) 9.6 H PT 18.4 H INR 1.57 H APTT 51.5 H Potassium Carbon Dioxide 31 H 11/08/18 03:54 MCV RDW Plt Count [place] % (Auto) PT INR APTT Potassium 3.4 L Carbon Dioxide
[2018-11-10] MEDS: LOVENOX SUB-Q SCH (21:57)
--- NOTE | 2018-11-10 22:22 | Event Note ---
Date: 11/10/18 Pt states that he does not want to proceed with Lexiscan scheduled for tomorrow. He states that he advised the doctor (unsure of name) of his wishes.
[2018-11-11] MEDS ORDERED: LEXISCAN IV ONE (08:33)
--- NOTE | 2018-11-11 10:24 | Progress Note ---
Assessment and Plan Atypical chest pain likely related to lung masses Hx of Left lung mass prior negative lung biopsy at [facility] in 2013. LBBB An echocardiogram revealed a decreased left ventricular systolic function, EF 30-35%. The chronicity of his cardiomyopathy is uncertain. Recommend: Medical therapy for dilated cardiomyopathy with TESSA inhibitor, beta blockers, spironolactone and oral antiplatelet therapy. Stable for discharge home today. Patient will follow up with [facility] within 5-7 days. Subjective Date of service: 11/11/18 Interval history: Patient declined stress thallium test. He has no cardiac complaints. Objective Vital Signs Temp Pulse Resp BP Pulse Ox 11/11/18 09:31 98.0 F 64 18 147/70 98 11/11/18 03:41 97.6 F 62 20 127/66 98 11/10/18 23:12 93 11/10/18 23:05 98.1 F 85 19 126/66 93 11/10/18 21:58 148/75 11/10/18 19:10 98.1 F 75 20 148/75 97 11/10/18 16:55 75 169/76 96 11/10/18 15:26 72 141/65 11/10/18 15:25 72 141/65 11/10/18 15:24 72 141/65 11/10/18 15:19 72 141/65 96 11/10/18 11:00 67 - Physical Examination General: No Apparent Distress HEENT: Positive: PERRL Neck: Positive: neck supple Cardiac: Positive: Reg Rate and Rhythm Neuro: Positive: Grossly Intact Abdomen: Positive: Soft Extremities: Absent: edema
[2018-11-11] MEDS: HALFPRIN EC PO SCH (11:16)
[2018-11-11] MEDS: ZITHROMAX PO SCH (11:16)
[2018-11-11] MEDS: ALDACTONE PO SCH (11:17)
[2018-11-11] MEDS: ROCEPHIN/NS 2 GM/100 ML 2 GM/100 ML BAG IV SCH (11:17)
[2018-11-11] MEDS: ZESTRIL PO SCH (11:18)
[2018-11-11] MEDS: SODIUM CHLORIDE FLUSH SYRINGE 10 ML IV SCH (11:18)
[2018-11-11] MEDS: COREG PO SCH (11:18)
[2018-11-11 11:57] VITALS: BP 143/67
--- NOTE | 2018-11-11 12:33 | Discharge Summary ---
Providers - Providers Date of Admission: 11/07/18 18:37 Date of discharge: 11/11/18 Attending physician: TOMMIE NAIK 11/07/18 18:39 Consult to Physician [CONS] Routine Comment: Consulting Provider: MIKE POLLOCK Physician Instructions: Reason For Exam: angina/chf 11/08/18 11:24 Consult to Physician [CONS] Routine Comment: Consulting Provider: JENI YARBROUGH Physician Instructions: Reason For Exam: pulmonary masses Primary care physician: GREGORY FELICIANO Hospitalization Reason for admission: Chest pain/shortness of breath Condition: Stable Pertinent studies: 2d echo showed reduced EF of 30-35% CT chest w ,showed RLL pNA and b/l lung nodules. Hospital course: 73 YO Male patient with Lung Disease was admitted through ER with chest pain, orthopnea/PND, and decreased exercise tolerance.Patient was managed appropriately.Evaluated by Cardiology. CT chest w ,showed RLL pNA and b/l lung nodules. 2d echo showed reduced EF,cardiology rec stress test, however patient refused. Today patient is comfortable,no new complaints,Vital signs stable,cleared by cardiology and pulm for DC Rest of the w/u as out patient.Stable at discharge. Discharge Diagnosis: --b/l multiple Lung nodules Possible metastatic lesions. Also reported right hilar adenopathy. Also reported indeterminate liver and Omental lesions, Pulmonary evaluated, Pt reports had biopsy in 2012 at [place] showed benign granulomatous disease Patient refused biopsy, will followup with pulmonary upon discharge --RLL pneumonia: community acquired managed with IV antibiotics, blood culture neg --Acute CHFeEF 30-35% antifailure medications,low sodium diet --Atypical Chest pain Patient refused stress test .[Patient reports his past stress test was negative] Cardiology evaluated - Hypokalemia, repleted - DVT prophylaxis: lovenox Stable at discharge Disposition: DC- TO HOME OR SELFCARE Time spent for discharge: 32 min Core Measure Documentation - Palliative Care Palliative Care/ Comfort Measures: Not Applicable - Core Measures Any of the following diagnoses?: heart failure - Heart Failure Discharge Requirements TESSA/ARB for LVSD if EF <40%: Yes Beta marlon at discharge: Yes Exam - Constitutional Vitals: Temp Pulse Resp BP Pulse Ox 98.1 F 71 18 143/67 99 11/11/18 11:56 11/11/18 11:56 11/11/18 11:56 11/11/18 11:56 11/11/18 11:56 General appearance: Present: no acute distress, well-nourished - EENT Eyes: Present: PERRL - Neck Neck: Present: supple, normal ROM - Respiratory Respiratory effort: normal Respiratory: bilateral: diminished, rhonchi - Cardiovascular Rhythm: regular Heart Sounds: Present: S1 & S2 - Extremities Extremities: no ischemia, No edema - Abdominal General gastrointestinal: Present: soft, non-tender, non-distended, normal bowel sounds - Integumentary Integumentary: Present: clear, warm - Musculoskeletal Musculoskeletal: strength equal bilaterally - Psychiatric Psychiatric: appropriate mood/affect, cooperative - Neurologic Neurologic: CNII-XII intact, moves all extremities Plan Activity: advance as tolerated, fall precautions Diet: other (cardiac diet) Follow up with: GREGORY FELICIANO MD [Primary Care Provider] - 7 Days MIKE POLLOCK MD [Staff Physician] - 7 Days POONAM JACK MD [Staff Physician] - 7 Days Forms: Work/School Release Form Prescriptions: Spironolactone [Aldactone] 25 mg PO QDAY #30 tablet Aspirin EC 81 mg PO QDAY #30 tablet Carvedilol [Coreg] 6.25 mg PO BID #60 tablet Lisinopril [Zestril TAB] 5 mg PO QDAY #30 tablet Azithromycin [Zithromax Z-SREEKANTH] 0 mg PO DAILY #1 tab
--- NOTE | 2018-11-11 14:15 | Progress Note ---
Assessment and Plan Patient alert, awake and resting on room air.O2 saturation 96%. Says left sided pleuritic chest pain is better. Records obtained from [place],fine needle apiration of left lower lobe lesion done on 12/10/12 reported firous, tissue benign bronchial epithelium and granulomatous inflammation.Patients CAT scan at [place] on 11/03/2012 shows right lower lobe mass adjacent to the major fissure with central calcification is unchanged from the MRI from 02/22/2011. However, in light of the enlarging left lower lobe nodule and the presence of other pulmonary nodules, malignancy should be considered including metastatis from cartilaginous bony lesions (including enchondromas, which have low malignant potential) or primary or metastatic carcinoid tumors. Suggest biopsy of left lower lobe lesion given that this lesion has increased in size since 2010. Patient undergone percutaneous needle biopsy of left lung lesion at [facility] in 2012. Patient suffered left sided pneumothorax post biopsy. Patient had a left sided chest tube placed and expansion of the left lung. Patient has a CT of the chest here at [facility] on 11/07/18. reported: IMPRESSION: 1. Multiple pulmonary masses with calcification suggestive of metastatic disease. With the degree of calcification observed in the larger lesions a mucinous producing primary tumor should be considered. 2. Right hilar adenopathy. 3. Indeterminate liver and omental lesions. 4. Airspace opacity in the right lower lobe. Suggested to the patient to have a percutaneous needle biopsy of the lesion. Patient does not want any kind of biopsy at this time. Patient want to go home. Patient discharged to day. No complaint of chest pain or shortness of breath Or cough Patient does not want percutaneous needle biopsy of chest lesion under any circumastances. - Patient Problems (1) Mass of lung parenchyma Current Visit: Yes Status: Acute Plan to address problem: Bilateral lung masses. Reported could be metastatic lesions. Also reported right hilar adenopathy. Also reported indeterminate liver and Omental lesions. Patient does not want any biopsies of chest lesion under any circumastances. (2) Chest pain Current Visit: Yes Status: Acute Qualifiers: Chest pain type: unspecified Qualified Code(s): R07.9 - Chest pain, u nspecified Plan to address problem: Complained sharp pleuritic type of chest pain. Says chest pain is gone now.. (3) Diastolic CHF Current Visit: Yes Status: Acute Qualifiers: Heart failure chronicity: acute Qualified Code(s): I50.31 - Acute diastolic (congestive) heart failure Plan to address problem: Management as per cardiology. (4) Pneumonia Current Visit: Yes Status: Acute Plan to address problem: Continue ceftrioxone and zithromax. Subjective Date of service: 11/11/18 Interval history: Patient alert, awake and resting on room air.O2 saturation 96%. Says left sided pleuritic chest pain is better. Records obtained from [place],fine needle apiration of left lower lobe lesion done on 12/10/12 reported firous, tissue benign bronchial epithelium and granulomatous inflammation.Patients CAT scan at [place] on 11/03/2012 shows right lower lobe mass adjacent to the major fissure with central calcification is unchanged from the MRI from 02/22/2011. However, in light of the enlarging left lower lobe nodule and the presence of other pulmonary nodules, malignancy should be considered including metastatis from cartilaginous bony lesions (including enchondromas, which have low malignant potential) or primary or metastatic carcinoid tumors. Suggest biopsy of left lower lobe lesion given that this lesion has increased in size since 2010. Patient undergone percutaneous needle biopsy of left lung lesion at [facility] in 2012. Patient suffered left sided pneumothorax post biopsy. Patient had a left sided chest tube placed and expansion of the left lung. Patient has a CT of the chest here at [facility] on 11/07/18. reported: IMPRESSION: 1. Multiple pulmonary masses with calcification suggestive of metastatic disease. With the degree of calcification observed in the larger lesions a mucinous producing primary tumor should be considered. 2. Right hilar adenopathy. 3. Indeterminate liver and omental lesions. 4. Airspace opacity in the right lower lobe. Suggested to the patient to have a percutaneous needle biopsy of the lesion. Patient does not want any kind of biopsy at this time. Patient want to go home. Patient discharged to day. No complaint of chest pain or shortness of breath Or cough Patient does not want percutaneous needle biopsy of chest lesion under any circumastances. Objective Vital Signs - 12hr 11/11/18 11/11/18 11/11/18 03:41 09:31 10:00 Temperature 97.6 F 98.0 F Pulse Rate 62 64 Pulse Rate [ 64 Radial] Respiratory 20 18 18 Rate Blood Pressure 127/66 147/70 O2 Sat by Pulse 98 98 98 Oximetry 11/11/18 11/11/18 11/11/18 11:17 11:18 11:56 Temperature 98.1 F Pulse Rate 64 64 71 Pulse Rate [ Radial] Respiratory 18 Rate Blood Pressure 147/70 147/70 143/67 O2 Sat by Pulse 99 Oximetry 11/11/18 13:48 Temperature Pulse Rate Pulse Rate [ Radial] Respiratory Rate Blood Pressure O2 Sat by Pulse 96 Oximetry Constitutional: no acute distress, alert Eyes: non-icteric ENT: oropharynx moist Neck: supple, no JVD Ascultation: Bilateral: rhonchi Cardiovascular: regular rate and rhythm Gastrointestinal: normoactive bowel sounds, soft, non-tender Integumentary: normal Extremities: no cyanosis, no edema Neurologic: normal mental status, non-focal exam, pupils equal and round, CN II- XII normal Psychiatric: anxious CBC and BMP: 11/07/18 13:34 11/10/18 04:14 ABG, PT/INR, D-dimer: PT/INR, D-dimer PT 18.4 Sec. (12.2-14.9) H 11/07/18 13:56 INR 1.57 (0.87-1.13) H 11/07/18 13:56 190.62 ng/mlDDU (0-234) 11/07/18 13:56 Abnormal lab findings: Abnormal Labs 11/07/18 11/07/18 11/07/18 13:34 13:56 13:56 MCV 97 H RDW 13.1 L Plt Count 125 L [place] % (Auto) 9.6 H PT 18.4 H INR 1.57 H APTT 51.5 H Potassium Carbon Dioxide 31 H 11/08/18 03:54 MCV RDW Plt Count [place] % (Auto) PT INR APTT Potassium 3.4 L Carbon Dioxide
== END 2018-11-11 15:02 | disposition home or self-care (01) | DRG 291 ==
LOC: ED 13:01 → 4A 18:37
PROVIDERS: ADMIT Internal Medicine; ATTEND Internal Medicine
DX: I50.31 Acute diastolic (congestive) heart failure (principal); J18.1 Lobar pneumonia, unspecified organism; I42.0 Dilated cardiomyopathy; I44.7 Left bundle-branch block, unspecified; R91.8 Other nonspecific abnormal finding of lung field; K76.9 Liver disease, unspecified; R59.9 Enlarged lymph nodes, unspecified; E87.6 Hypokalemia
CPT/HCPCS: 36415; 71045; 71260; 80048; 82550; 82553; 83735; 83880; 84132; 84484; 85025; 85379; 85610; 85730; 87040; 93005; 93010; 93306; 96372; 96374; G0378; J0456; J0696; J1650; J2785; J7050; Q9967